=== PATIENT | female | born 1950 | race Caucasian/White ===

== ENCOUNTER 2020-06-22 09:19 | Emergency (ER) | payer BC ==
[~2020-06-22] VITALS: Ht 165.1 cm; Wt 95.3 kg
--- NOTE | 2020-06-22 09:30 | NUR ---
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 Patient a/ox4, breathing even and unlabored, no sob noted. Changed into a gown,a ttached to the case monitor.
[2020-06-22] MEDS ORDERED: ONDANSETRON HCL/PF 4 MG/2 ML VIAL ONE ×2 (09:43→14:36)
[2020-06-22 09:51] LABS: EOSINOPHILS % (AUTO) 1.9 % (0.0-6.0); HEMATOCRIT 41 % (33-45); HEMOGLOBIN 14.3 g/dL (11.5-14.8); LYMPHOCYTES # (AUTO) 1.1 /CMM (0.8-4.8); LYMPHOCYTES % (AUTO) 31.4 % (20.0-44.0); MEAN CORPUSCULAR HGB CONC 35 g/dl (31.0-36.0); MEAN CORPUSCULAR VOLUME 96 fL (82-100); MONOCYTES # (AUTO) 0.2 /CMM (0.1-1.30); NEUTROPHILS % (AUTO) 58.7 % (43.0-81.0); PLATELET COUNT (AUTO) 170 /CMM (150-450); RED BLOOD CELL COUNT(AUTO) 4.28 MIL/uL (4.0-5.2); WHITE BLOOD COUNT (AUTO) 3.5 K/uL (4.3-11.0)
[2020-06-22] MEDS ORDERED: ONDANSETRON HCL/PF 4 MG/2 ML VIAL IV ONE (10:00)
[2020-06-22] MEDS ORDERED: IV NS 0.9% 1,000 ML BAG IV ONE (10:00)
[2020-06-22 10:04] LABS: CALCIUM, SERUM 8.8 mg/dL (8.5-10.1); CARBON DIOXIDE 28 mmol/L (21-32); CHLORIDE 103 mmol/L (98-107); CREATININE 0.7 mg/dL (0.6-1.3); GLUCOSE 159 mg/dL (74-106); SODIUM SERUM 140 mmol/L (136-145); UREA NITROGEN, BLOOD 16 mg/dL (7-18)
[2020-06-22 10:09] LABS: ALANINE AMINOTRANSFERASE 25 U/L (12-78); ALBUMIN 3.8 g/dL (3.4-5.0); ALKALINE PHOSPHATASE 61 U/L (46-116); ASPARTATE AMINOTRANSFERASE 16 U/L (15-37); BILIRUBIN,DIRECT 0.1 mg/dL (0.0-0.2); BILIRUBIN,TOTAL 0.5 mg/dL (0.2-1.0); LIPASE 119 U/L (73-393); POTASSIUM 2.8 mmol/L (3.5-5.1); TOTAL PROTEIN, SERUM 6.5 g/dL (6.4-8.2)
[2020-06-22] MEDS ORDERED: POTASSIUM CHLORIDE 20 MEQ TAB.PRT.SR PO ONE ×2 (10:30→10:44)
[2020-06-22] MEDS ORDERED: Magnesium 1GM/D5W 100ML PREMIX 100 ML IV SCH (10:30)
[2020-06-22] MEDS: POTASSIUM CL. PREMIX PERIPHER. 50 ML IV SCH ×4 (10:40→13:40)
[2020-06-22] MEDS ORDERED: POTASSIUM CL. PREMIX PERIPHER. 200 ML ONE (10:43)
[2020-06-22] MEDS ORDERED: Magnesium 1GM/D5W 100ML PREMIX 100 ML IV ONE (10:43)
--- NOTE | 2020-06-22 10:45 | NUR ---
patient assisted to restroom, denies dizziness at this time
[2020-06-22 10:50] LABS: BILIRUBIN,URINE Negative (NEGATIVE); COLOR,URINE YELLOW (YELLOW); LEUKOCYTE ESTERASE ,URINE Small (NEGATIVE); NITRITE, URINE Negative (NEGATIVE); PROTEIN,URINE Negative (NEGATIVE); UGLUCOSE Negative (NEGATIVE); UROBILINOGEN,URINE 0.2 EU/dL (0.2)
[2020-06-22 10:54] LABS: BACTERIA,URINE 1+ /HPF (None Seen); RBC,URINE NONE SEEN /HPF (0-2); SQUAMOUS EPITHELIAL CELL,UR Few /HPF (None Seen)
--- NOTE | 2020-06-22 10:55 | NUR ---
ORAL CHALLENGED PATIENT ABLE TO TOLERATE WATER AT THIS TIME.
--- NOTE | 2020-06-22 12:38 | NUR ---
PATIENT STATES SHE'S STILL SLIGHTLY DIZZY AND NAUSEOUS.
[2020-06-22] MEDS ORDERED: ONDANSETRON HCL/PF - ER 4 MG/2 ML VIAL IV ONE (15:00)
--- NOTE | 2020-06-22 15:25 | NUR ---
CALLED LAB FOR REPEAT BMP. POTASSIUM IV COMPLETED.
[2020-06-22 15:51] LABS: CALCIUM, SERUM 8.5 mg/dL (8.5-10.1); CREATININE 0.6 mg/dL (0.6-1.3)
--- NOTE | 2020-06-22 17:06 | NUR ---
K LEVEL IMPROVED. DAUGHTER AT BEDSIDE AND WOULD LIKE TO SPEAK WITH THE FAMILY. IV removed. Catheter intact and site benign. Pressure and 4x4 applied to site. No bleeding noted. Per patient, symptoms improved somewhat. Patient does not wish to proceed with medical care recommended by Dr. Padgett. Patient given information related to possible complications, up to and including , which could occur as a result of leaving the hospital at this time. Patient verbalizes understanding of risks involved due to leaving against medical advice. Patient has signed AMA form.
[2020-06-22 17:08] VITALS: BP 138/72
[2020-06-22] MEDS ORDERED: CEPHALEXIN MONOHYDRATE 500 MG CAPSULE PO ONE ×2 (17:19→17:30)
[2020-06-22] MEDS ORDERED: ASPIRIN 81 MG TAB.CHEW ONE (17:19)
[2020-06-22] MEDS ORDERED: ASPIRIN 81 MG TAB.CHEW PO ONE (17:30)
== END 2020-06-22 17:08 | disposition left against medical advice (07) ==
LOC: ER 09:22
DX: R42 Dizziness and giddiness (principal); E86.0 Dehydration; E87.6 Hypokalemia; I10 Essential (primary) hypertension; R11.0 Nausea
CPT/HCPCS: 36415; 70450; 80048 ×2; 80076; 81001; 83690; 84484; 85025; 93005; 96361; 96365; 96366; 96367; 96375; 96376; 99285; J2405 ×2; J3475; J3480; J7030